=== PATIENT | female | born 1990 | race Caucasian/White ===

== ENCOUNTER 2016-12-02 22:00 | Inpatient (IN) | payer OTHER ==
--- NOTE | ~2016-12-02 | DS ---
Unit #: [id number] #: [id number] [facility]: [facility] [id number] [facility] [address] [place] [address] [id number] MR#: [id number] NAME: ISABEL CHRISTY. ROOM: P186 Age: 26 Sex: F Admission Date: 12/02/2016 : 1990 Discharge Date: 12/07/2016 Attending Physician: Preston Hanna M.D. Primary Care Physician: Primary Care Physician No DISCHARGE SUMMARY IDENTIFYING DATA Ms. Christy is a 26-year-old single white female, who is a resident of [place], [place], and was self-referred to the hospital on a voluntary basis and was accompanied by her father. CHIEF COMPLAINT "I've been using heroin and meth on and off since 2015." DISCHARGE DIAGNOSES Psychiatric: Major depressive disorder, recurrent, moderate, without psychotic features; opioid dependence, moderate and acute withdrawal. Medical: None. Stressors: Moderate psychosocial stressors. HISTORY OF PRESENT ILLNESS Please see initial psychiatric evaluation for details. PAST PSYCHIATRIC HISTORY Please see initial psychiatric evaluation for details. PAST MEDICAL HISTORY Please see initial psychiatric evaluation for details. HOSPITAL COURSE The patient [facility] and was oriented to the hospital environment. Routine p.r.n. medications were initiated, and she was started on the detox protocol and was closely monitored. She was taking the medications regularly and was tolerating them fairly well and was able to show a fairly decent and therapeutic response and was able to come out of the detox without any complications and was willing to continue treatment on an outpatient basis. DISCHARGE MEDICATIONS None. DISCHARGE CONDITION Stable. PROGNOSIS Fair. Dictated by... Preston Hanna M.D. Unit #: [id number] #: [id number] Patient: ISABEL CHRISTY IAA/modl TD: 12/07/2016 07:47 JOB #: [id number] DISCHARGE SUMMARY Page 1 of 1 X Preston Hanan MD X DISCHARGE SUMMARY
--- NOTE | ~2016-12-02 | PA ---
Unit #: [id number] #: [id number] Patient: ISABEL CHRISTY [id number] [facility] [address] [place] [address] [id number] MR#: [id number] NAME: ISABEL CHRISTY. ROOM: P186 Age: 26 Sex: F Admission Date: 12/02/2016 : 1990 Date of Assessment: Attending Physician: Preston Hanna M.D. Admitting Physician: Preston Hanna M.D. Primary Care Physician: Primary Care Physician No PSYCHIATRIC ASSESSMENT IDENTIFYING DATA Ms. Christy is a 26-year-old, single, white female, who is a resident of [place], [place], and was self-referred to the hospital on voluntary basis and was accompanied by her father. CHIEF COMPLAINT "I've been using heroin and meth on and off since 02/2016." HISTORY OF PRESENT ILLNESS Ms. Christy is a 26-year-old white female with a history of substance abuse and dependence, who comes to the hospital reporting that she has been using heroin and meth on and off since last year, but has been using regularly more frequently since 08/2016 that she is using daily by snorting it and last use was 24 hours ago, and reports that she has been using 0.5 g of heroin daily via snorting it and also has been using 0.5 g of methamphetamine by smoking and snorting and stated "I just feel like I want to . I feel like I am at the end of my road. I don't have a job. I'm homeless. I'm really depressed. I've a daughter. She lives with my mom and dad, so I had to get back together for her." She does endorse significant depression, anxiety, with significant consequences because of her addiction and reports that she has been having feelings of hopelessness and helplessness, and suicidal ideations and as such, was seen to be danger to self and others and recommendation for inpatient level of care for safety and stabilization was made and the patient was transferred to us. SUBSTANCE ABUSE HISTORY The patient reports history of alcohol, cannabis, cocaine, opioids, amphetamines, benzodiazepines, and currently appears that opioids and methamphetamine has been her drug of choice. PAST PSYCHIATRIC HISTORY The patient has not had any prior inpatient or outpatient psychiatric treatments. Review of the medical records indicate that currently she is not active in any treatment program, is not seeing a psychiatrist, not taking any psychotropic medications. PAST MEDICAL HISTORY No acute or chronic medical illnesses. CURRENT MEDICATIONS None. Unit #: [id number] #: [id number] Patient: ISABEL CHRISTY PERSONAL AND SOCIAL HISTORY A 26-year-old white female, who reports that she is single, unemployed, and has poor social support system and poor living situation and does not have a stable living of her own and she has a child and denies any CPS involvement at this time. MENTAL STATUS EXAMINATION Young white female, who was casually dressed with fair personal hygiene, appears to be in no acute distress or discomfort. She was awake and alert on interaction with intact orientation to time, place, and person. Her mood was anxious and depressed with a congruent affect. Her speech was slow and goal directed. She reports having suicidal ideation, but denies any homicidal ideations, and also denies any auditory or visual hallucinations. Her insight and judgment remain significantly impaired. DIAGNOSTIC IMPRESSION Psychiatric: Major depressive disorder, recurrent, moderate, without psychotic features; opioid dependence, moderate and acute withdrawals; methamphetamine dependence, moderate. Medical: None. Stressors: Moderate psychosocial stressors. TREATMENT PLAN 1. The patient has presented with history of mood disorder and substance abuse and dependence and has been decompensating and will need inpatient hospitalization for detoxification, safety, and stabilization. We will start her back on her home medications and detox protocol will be initiated as well. 2. Supportive therapy was provided to the patient. 3. Safe, structured, and nourishing environment will be reported. ESTIMATED LENGTH OF STAY 5 to 7 days. ABILITY TO HELP SELF Limited. WILLINGNESS TO HELP SELF The patient appears to be willing to help self. STRENGTHS 1. Communicative. 2. Cooperative. PROBLEMS 1. Chronic dysphoric symptoms. 2. Poor social support system. DISCHARGE CRITERIA This will be contingent upon the patient's ability to show resolution of her depression and anxiety and her ability to stay safe to herself, particularly after discharge from the hospital. Dictated by... Unit #: [id number] #: [id number] Patient: ISABEL CHRISTY Ming Trejo/richard TD: 12/03/2016 06:45 JOB #: [id number] PSYCHIATRIC ASSESSMENT Page 1 of 1 X Preston Hanna MD PSYCHIATRIC ASSESSMENT
--- NOTE | ~2016-12-02 | CO ---
Unit #: [id number] #: [id number] Patient: ISABEL CHRISTY [id number] [place] [address] [id number] I MR#: [id number] NAME: ISABEL CHRISTY. ROOM: P186 Age: 26 Sex: F Admission Date: 12/02/2016 : 1990 Attending Physician: Preston Hanna M.D. Primary Care Physician: Primary Care Physician No Consultation Date: 12/05/2016 CONSULTATION REPORT ORDERING PROVIDER Dr. Hanna. REASON FOR CONSULT Abnormal UA. SUBJECTIVE The patient was not available on the unit to discuss signs and symptoms. OBJECTIVE Urinalysis shows 3+ leukocyte esterase, and 2+ bacteria. ASSESSMENT Urinary tract infection. PLAN Plan is to start on Augmentin x3 days and get a culture and sensitivity. Dictated by... Daniel Lopez/richard TD: 12/06/2016 01:17 JOB #: [id number] CONSULTATION REPORT Page 1 of 1 X LUIS MANUEL RIVERO APRN CONSULTATION REPORT
--- NOTE | ~2016-12-02 | HP ---
Unit #: [id number] #: [id number] Patient: ISABEL CHRISTY [id number] [place] [address] [id number] MR#: [id number] NAME: ISABEL CHRISTY. ROOM: P186 Age: 26 Sex: F Admission Date: 12/02/2016 : 1990 Attending Physician: Preston Hanna M.D. Admitting Physician: Preston Hanna M.D. Primary Care Physician: Primary Care Physician No HISTORY AND PHYSICAL HISTORY OF PRESENT ILLNESS Isabel is a 26 year old admitted to [facility] because of her polysubstance abuse which includes snorting heroin and smoking methamphetamine. PAST MEDICAL HISTORY History of illicit substance abuse. PAST SURGICAL HISTORY Nothing reported. ALLERGIES No known drug allergies. SOCIAL HISTORY Smokes 1 pack per day. Denies alcohol. Admits to history of poly-illicit substance abuse. FAMILY HISTORY Medically noncontributory. REVIEW OF SYSTEMS CONSTITUTIONAL: No fever or chills. HEENT: Denies any sore throat, ear pain or runny nose. CARDIOVASCULAR: Denies chest pain, irregular heart rhythm or palpitations. CHEST: Denies shortness of breath or cough. No hemoptysis. GASTROINTESTINAL: Denies nausea, vomiting, diarrhea or chronic constipation. ENDOCRINE: Denies history of increased thirst or urination. No recent significant weight loss or gain. GENITOURINARY: Denies dysuria, frequency, or hematuria. SKIN: Denies any rashes. HEMATOLOGIC: Denies history of increased bleeding or bruising. MUSCULOSKELETAL: Denies any hot, swollen joints. No generalized muscle pain. NEUROLOGIC: Denies problems with vision or speech. No frequent, severe headaches. No numbness, tingling or weakness in any extremities. Denies loss of bladder or bowel control. CURRENT MEDICATIONS 1. Detox protocol. 2. Requip 0.5 mg q.h.s. p.r.n. PHYSICAL EXAMINATION Unit #: [id number] #: [id number] Patient: ISABEL CHRISTY GENERAL: Alert, well-nourished, in no apparent distress. VITAL SIGNS: Blood pressure 100/46, heart rate 80, respirations 16, temperature 98.6. WEIGHT: 158. HEIGHT: 5 feet 3 inches. SKIN: Warm and dry without rash or lesion. HEENT: Normocephalic. TMs not viewed. Oral and nasal passages clear. Conjunctivae clear. PERRLA. EOMs intact. NECK: Supple without lymphadenopathy or thyromegaly. HEART: Regular rate and rhythm without murmur. LUNGS: Clear. ABDOMEN: Soft, nontender. : Not done. EXTREMITIES: No evidence of cyanosis, clubbing or edema. Moves all without focal deficit. NEUROLOGICAL: Grossly within normal limits. Cranial Nerves: II: Visual miramontes are intact. III, IV AND : Extraocular movements are intact. Pupils are equal, round and reactive to light. V: Facial sensation is grossly normal. VII: Facial movements and expression are normal. VIII: Auditory acuity grossly intact. IX, X: Uvula is midline. Phonation is normal. XI: Patient shrugs shoulders and turns head normally. XII: Tongue protrudes in the midline. Sensory and Motor Function: Sensory and motor sensation is grossly normal. Motor: moves all extremities well. Coordination: Gait is normal. Deep Tendon Reflexes: Intact. IMPRESSION Psychiatric admission. RECOMMENDATIONS PSYCHIATRIC: Per psychiatrist. MEDICAL: See no contraindications to participate in facility's activities. MEDICAL PROGNOSIS Good. MEDICAL CONDITION Stable. Dictated by... Lisbet Pisano PCalACal-Klever. for Ming Reilly/chantale TD: 12/03/2016 20:09 JOB #: [id number] Unit #: [id number] #: [id number] Patient: ISABEL CHRISTY HISTORY AND PHYSICAL Page 1 of 1 X Lisbet Pisano HISTORY AND PHYSICAL
--- NOTE | ~2016-12-02 | PN ---
Unit #: [id number] #: [id number] Patient: ISABEL CHRISTY [id number] [facility] [address] [place] [address] [id number] I MR#: [id number] NAME: ISABEL CHRISTY. ROOM: P186 Age: 26 Sex: F Admission Date: 12/02/2016 : 1990 Attending Physician: Preston Hanna M.D. Admitting Physician: Preston Hanna M.D. Primary Care Physician: Primary Care Physician Mirela DUFF NOTES DATE OF SERVICE: 12/04/2016 SUBJECTIVE Ms. Christy is a 26-year-old white female with substance abuse and mood disorder, who was seen today and chart was reviewed and the case was discussed with the staff. She was seen to be anxious, withdrawn, and rather seclusive to herself. She is curled up in her bed and was not able to carry any meaningful conversation. She stated she is not feeling good and that she is having increasing anxiety. Meanwhile, she has been taking medications and tolerating them fairly well with no reported side effects. MENTAL STATUS EXAMINATION Young white female who was casually dressed with fair personal hygiene, appears to be in no acute distress or discomfort. She was awake and alert on interaction with intact orientation. Her present mood was anxious with a congruent affect. She denies any suicidal or homicidal ideation. Her insight and judgment remain significantly impaired. TREATMENT PLAN 1. We will continue on current medications and treatment protocol. We will monitor her response to medications and make further adjustments as needed. 2. We will continue to follow up. Dictated by... Ming Trejo/richard TD: 12/05/2016 00:35 JOB #: [id number] Unit #: [id number] #: [id number] Patient: ISABEL CHRISTY [facility] PROGRESS NOTES Page 1 of 1 X Preston Hanna MD PROGRESS NOTE
--- NOTE | ~2016-12-02 | PN ---
Unit #: [id number] #: [id number] Patient: ISABEL CHRISTY [id number] [facility] [address] [place] [address] [id number] I MR#: [id number] NAME: ISABEL CHRISTY. ROOM: P186 Age: 26 Sex: F Admission Date: 12/02/2016 : 1990 Attending Physician: Preston Hanna M.D. Admitting Physician: Preston Hanna M.D. Primary Care Physician: Primary Care Physician Mirela DUFF NOTES DATE December 05, 2016 DISCUSSION Ms. Christy is a 26-year-old white female, who was seen today and chart was reviewed and the case was discussed with the staff. She appears to be doing somewhat better and has been able to get out of her bed and go to therapy groups and she still describes herself to be in distress and discomfort. Meanwhile, she has been taking medications and tolerating them fairly well with no reported side effects. MENTAL STATUS EXAMINATION Young white female, who was casually dressed with fair personal hygiene and appears to be in no acute distress or discomfort. She was awake and alert on interaction with intact orientation. Her mood is anxious with a congruent affect. The patient denies any suicidal or homicidal ideations. Her insight and judgment remain slightly impaired. TREATMENT PLAN 1. We will continue her on her current medications and treatment protocol, and will monitor her response to the medications, and make further adjustments as needed. 2. We will continue to followup. Dictated by... Ming Trejo/diana TD: 12/06/2016 08:54 JOB #: [id number] Unit #: [id number] #: [id number] Patient: ISABEL CHRISTY [facility] PROGRESS NOTES Page 1 of 1 X Preston Hanna MD PROGRESS NOTE
--- NOTE | ~2016-12-02 | PN ---
Unit #: [id number] #: [id number] Patient: ISABEL CHRISTY [id number] [facility] [address] [place] [address] [id number] I MR#: [id number] NAME: ISABEL CHRISTY. ROOM: P186 Age: 26 Sex: F Admission Date: 12/02/2016 : 1990 Attending Physician: Preston Hanna M.D. Admitting Physician: Preston Hanna M.D. Primary Care Physician: Primary Care Physician Mirela DUFF NOTES DATE OF SERVICE: 12/06/2016 SUBJECTIVE Ms. Christy is a 26-year-old white female, who was seen today and chart was reviewed, and case was discussed with the staff. She has been doing fairly well and appears to be coming out of the detox without any complications and has been functioning very well and has not shown any agitation or aggression. MENTAL STATUS EXAMINATION Young white female, who is casually dressed with fair personal hygiene, and appears to be in no acute distress or discomfort. She was awake and alert on interaction with intact orientation. Her mood was anxious with a congruent affect. The patient denies any suicidal or homicidal ideations. Her insight and judgment remain slightly impaired. TREATMENT PLAN 1. We will continue her on her current treatment protocol. We will monitor her response to the medications and make further adjustments as needed. 2. We will continue to follow up. Dictated by... Ming Trejo/stevenl TD: 12/06/2016 07:48 JOB #: [id number] [facility] PROGRESS NOTES Page 1 of 1 X Preston Hanna MD PROGRESS NOTE
[2016-12-04 12:27] LABS: BASOPHIL# 0.1 X10e3 (0-0.3); BASOPHIL% 0.9 % (0-2.5); EOSINOPHIL# 0.1 X10e3 (0-0.7); EOSINOPHIL% 1.4 % (0.0-7.0); HEMATOCRIT 38.4 % (35.0-45.0); HEMOGLOBIN 12.8 gm/dL (12.0-16.0); LYMPHOCYTE# 3.4 X10e3 (1.0-3.5); LYMPHOCYTE% 49.6 % (17.0-45.0); MEAN CELL VOLUME 89.8 FL (83-96); MEAN CORPUSCULAR HEMOGLOBIN 29.8 PG (28-34); MEAN CORPUSCULAR HGB CONC 33.2 g/dL (30-36); MEAN PLATELET VOLUME 8.6 FL (6.5-11.5); MONOCYTE# 0.7 X10e3 (0-1.0); NEUTROPHIL# 2.6 X10e3 (1.5-7.1); NEUTROPHIL% 38.1 % (40-75); PLATELET COUNT 218 X10e3 (140-420); RED BLOOD COUNT 4.28 X10e (3.90-5.30); RED CELL DISTRIBUTION WIDTH 12.8 % (11.0-15.5); WHITE BLOOD COUNT 6.8 X10e3 (4.0-10.5)
[2016-12-04 12:31] LABS: DIFF IND NO
[2016-12-04 12:44] LABS: ALBUMIN SERUM 3.6 g/dL (3.5-5.0); BILIRUBIN,TOTAL 0.4 mg/dL (0.2-2.0); BUN/CREATININE RATIO 16.25; CREATININE SERUM 0.8 mg/dL (0.6-1.4); GLOM FILT RATE Estimated 102.6 mL/min (>60); POTASSIUM 4.6 mmol/L (3.5-5.1); PROTEIN TOTAL SERUM 6.4 g/dL (6.0-8.3)
[2016-12-05 11:37] LABS: URINE APPEARANCE CLEAR; URINE BILIRUBIN NEG (NEG); URINE BLOOD NEG (NEG); URINE COLOR YELLOW; URINE GLUCOSE NEG (NEG); URINE KETONE NEG (NEG); URINE LEUKOCYTE ESTERASE 3+ (NEG); URINE NITRATE NEG (NEG); URINE PH 7.5 (5-8); URINE PROTEIN NEG (NEG); URINE SPECIFIC GRAVITY 1.011 (1.003-1.035); URINE UROBILINOGEN 0.2 MG/DL (NEG)
[2016-12-05 11:41] LABS: URINE BACTERIA AUWI 2+ (NEGATIVE); URINE SQUAMOUS EPITHELIAL CELL OCC /[HPF]
[2016-12-05 12:10] LABS: AMPHETAMINE NEG (NEG); BARBITURATES NEG (NEG); BENZODIAZEPINES NEG (NEG); COCAINE NEG (NEG); MARIJUANA POS (NEG); OPIATES NEG (NEG); TRICYCLIC ANTIDEPRESSANTS NEG (NEG); U METHADONE NEG (NEG)
== END 2016-12-07 09:45 | DRG 885 ==
LOC: P1E 23:36
PROVIDERS: Psychiatry & Neurology Psychiatry
PROC: HZ2ZZZZ Detoxification Services for Substance Abuse Treatment (ICD-10-PCS; principal; 2016-12-02)
DX: F33.1 Major depressive disorder, recurrent, moderate (principal); N39.0 Urinary tract infection, site not specified; F11.23 Opioid dependence with withdrawal; F17.210 Nicotine dependence, cigarettes, uncomplicated
CPT/HCPCS: 80053; 80307; 81003; 82947; 84703; 85025; 86592